=== PATIENT | female | born 1985 | race Hispanic/Latino ===

== ENCOUNTER 2019-12-13 00:36 | Day surgery (SDC) | payer OTHER ==
[2019-12-13 01:28] VITALS: BMI 27.6
[2019-12-13] MEDS ORDERED: hydrALAZINE 20 MG/ML VIAL SLOW IVP PRN (02:10)
--- NOTE | 2019-12-13 02:13 | PDOC.LDHP ---
Labor and Delivery H&P HPI: Patient of Dr Clay Time: Location: Triage A 34 yo at 34 weeks 0 days with last child by CS 14 years ago, here for incresaed urinary frequency and possible CTX. Good FM, no LOF, no fevers. Review of Systems: complete ROS complected and as per HPI Current gestational age (weeks): 34 (0) Dating criteria: last menstrual period Grav: 2 Para: 1 OB History Details: CS for previa Current complications: none Abnormal US findings: No Current medications: pre- vitamins Previous surgical history: other (CS HX X1) Allergies/Adverse Reactions: Allergies Allergy/AdvReac Type Severity Reaction Status Date / Time morphine Allergy Verified 12/13/19 01:16 Sulfa (Sulfonamide Allergy Verified 12/13/19 01:16 Antibiotics) Social history: none - Physical Exam Vital signs reviewed and normal: yes (first BP was 137/85 then 127/78) General: NAD Heart: RRR Lungs: CTAB Abdomen: gravid Extremeties: no edema FHT: category 1 [place] contractions every: CTXs noted every 3-5 minutes - Vaginal Exam cm dilated: 1 (by me with RN in room) Effacement: 25% Station: -3 - Assessment 34 weeks threatened PTL - Plan Plan: observation in L&D (I have ordered IVF hydration, clean cath UA. IF CTX perssist, consider BMZ for FLM and will admit at that time. We will OBS for now. OB sono for EFW.)
[2019-12-13] MEDS ORDERED: Lactated Ringer's 1,000 ML IV SCH (02:15)
[2019-12-13] MEDS ORDERED: Butorphanol Tartrate 1 MG/ML VIAL SLOW IVP SCH (02:30)
[2019-12-13 02:36] LABS: Bilirubin Negative (Negative); Blood, Urine Negative (Negative); Clarity Clear (Clear); Glucose, Urine (Dipstick) Normal (Negative); Leukocyte Negative Leu/uL (Negative); Nitrite Negative (Negative); Protein, Urine (Dipstick) Negative (Neg-Trace); RBC/HPF 0-3 HPF (0-3); Squamous Epithelial 0-3 HPF (0-3); Urobilinogen Normal mg/dL (Less than 2); WBC/HPF 0-3 HPF (0-3)
[2019-12-13 02:37] LABS: Bacteria/HPF None Seen HPF (None Seen); Urine Culture Reflex No No
--- NOTE | 2019-12-13 03:12 | PDOC.EVN ---
Event Note - Event Note Event Note: UA clean. Asked to come to bedside by sono business office technician to eval placenta. Unclear possible retroplacental fluid collection. Clinically I do not suspect abruption and fundus is soft and NT. No VB. No FHT decels. Continue to follow. Baby is vertex on sono.
--- NOTE | 2019-12-13 06:20 | PDOC.EVN ---
Event Note - Event Note Event Note: Strip reviewed: Baby reactive. NO decels. [place] with spaced out CTX but still present. I have asked her RN to recheck CX as it has been about 5 hrs or so.
--- NOTE | 2019-12-13 06:39 | PDOC.EVN ---
Event Note - Event Note Event Note: I have seen the patient at bedside and reviewed POC with her. OK for outpatient follow up with Dr bearden within 48 hrs. L&D instructions given to her by me. FHTS reviewed with her: reactive
--- NOTE | 2019-12-13 08:35 | ULT ---
PRELIMINARY REPORT/[facility]/EMERGENCY AFTER HOURS PROCEDURE EXAM: US Obstetrical, Complete >14 weeks. CLINICAL HISTORY: HX: CONTRACTIONS AT 34 WKS. SEE NOTES ON LAST IMAGE. THANKS TECHNIQUE: Transabdominal imaging of the maternal pelvis and a > 14 week gestation with image documen tation. COMPARISON: None provided. FINDINGS: FETUS: There is a single living intrauterine gestation, estimated gestational age 35 weeks 1 day POSITION: position is cephalic. HEART RATE: The heart rate is 150 beats per minute. BIOMETRICS: Based on composite biometry, the estimated gestational age by ultrasound is 35 weeks 1 day nico esponding to a due date of 01/16/2020. The estimated weight is 2389 g. ANATOMIC SURVEY: The visualized anatomy is unremarkable. PLACENTA: The placenta is located anterior. There is no evidence for placenta previa. A 4.0 x 2.4 cm retropla cental fluid collection probably represents hemorrhage. AMNIOTIC FLUID: Within normal limits. The RICCI is 22.2 cm CERVIX: Closed. Unremarkable as visualized. IMPRESSION: Single viable intrauterine . 4 cm retroplacental hemorrhage. ELECTRONICALLY SIGNED BY: Karl Schofield MD Dec 13, 2019 3:32:49 AM CDT This report is intended for review by the ordering physician only, in accordance of law. If you recei ve this report in error, please call [facility] at [phone]. FINAL REPORT OB ULTRASOUND: I agree with the preliminary report given by Dr. Schofield of [facility]. Biometry: BPD 9.07 cm, 36 weeks 5 days HC 32.31 cm, 36 weeks 4 days AC 30.18 cm, 34 weeks 1 day FL 6.35 cm, 32 weeks 6 days POS: ANAND
== END 2019-12-13 07:20 | disposition home or self-care (01) ==
LOC: L&D/OP 00:36
PROVIDERS: ATTEND Obstetrics & Gynecology
DX: O47.03 False labor before 37 completed weeks of gestation, third trimester (principal); O09.523 Supervision of elderly multigravida, third trimester; Z3A.34 34 weeks gestation of pregnancy; Z88.2 Allergy status to sulfonamides; Z88.5 Allergy status to narcotic agent
CPT/HCPCS: 76805; 81001; 96360; 96361; 96375; 99283; J0595

== ENCOUNTER 2020-01-02 15:31 | Inpatient (IN) | payer OTHER ==
[2020-01-02 15:54] VITALS: BMI 27.9
--- NOTE | 2020-01-02 16:06 | PDOC.LDHP ---
Labor and Delivery H&P Chief complaint: contractions, loss of fluid HPI: Pt is a 34 yo at 36.6 wks who presents for suspected SROM at 1507. She also endorsed contractions, irregular initially this am and progressed to every 4-5 mins. She denies vaginal bleeding. She does not want a TOLAC and has discussed this with Dr. Clay. Hx of placenta previa in first resulting in a 33 wk . She states U/S with this did not reveal previa. PCP: Danna Grav: 2 Para: 1 OB History Details: Hx of a placenta previa and delivery at 33 wks x 1 Current complications: gestational diabetes (States she is controlled with diet, last a1c 5.3) Current medications: pre-tiesha vitamins Previous surgical history: low tranverse CS Allergies/Adverse Reactions: Allergies Allergy/AdvReac Type Severity Reaction Status Date / Time morphine Allergy Verified 12/13/19 01:16 Sulfa (Sulfonamide Allergy Verified 12/13/19 01:16 Antibiotics) Social history: none - Physical Exam Vital signs reviewed and normal: yes General: breathing through contractions Heart: RRR Lungs: CTAB Abdomen: NTTP Extremeties: no edema FHT: category 2, early decelerations [place] contractions every: 4mins - Vaginal Exam cm dilated: 3 Station: 0 - Assessment L&D Assessment: premature rupture of membranes - Plan Plan: to OR for section -: Pt is a 34 yo at 36.6 wks who presents for rupture of membranes: # IUP w/ ROM in setting of prior - did not perform sterile speculum exam, amnisure as pt had grossly ruptured - admit pt to L&D for repeat - Case discussed with Dr. Clay - ancef ordered - monitor FHT's - cervical check # Hx of Delivery 2/2 Placenta Previa in first # A1GDM Well controlled - last a1c 5.3 per pt - monitor # Uterine Fibroids OBGYN: Dr. Clay Case discussed with Dr. Mcdermott.
[2020-01-02] MEDS ORDERED: Docusate 100 MG CAP PO PRN (16:18)
[2020-01-02] MEDS ORDERED: Ondansetron PF 4 MG/2 ML Vial IVP PRN ×3 (16:18→19:41)
[2020-01-02] MEDS ORDERED: Promethazine HCl 25 MG/ML VIAL IM PRN ×2 (16:18→19:04)
[2020-01-02] MEDS ORDERED: hydrALAZINE 20 MG/ML VIAL SLOW IVP PRN ×2 (16:18→19:41)
[2020-01-02] MEDS: Lactated Ringer's 1,000 ML IV SCH ×2 (16:22→17:13)
[2020-01-02] MEDS ORDERED: Bicitra 30 ML UDCUP PO SCH (16:30)
[2020-01-02] MEDS ORDERED: CEFAZOLIN 2 GM in Premix Bag 1 BAG IVPB SCH (16:30)
[2020-01-02 16:46] LABS: Hemoglobin 13.1 g/dL (12.0-16.0); Mean Corpuscular HGB CONC 35.8 g/dL (32.0-36.0); Mean Corpuscular Hemoglobin 32.5 pg (27.0-31.0); Mean Platelet Volume 8.1 fL (7.4-10.4); Platelet Count 187 thou/uL (130-400); RBC Distribution Width 11.6 % (11.5-14.5); Red Blood Cell (RBC) Count 4.01 mill/uL (4.20-5.40)
[2020-01-02] MEDS ORDERED: PHENYLEPHRINE-NS 100 MCG/ML 10 ML SYRINGE ONE (17:02)
[2020-01-02] MEDS ORDERED: Oxytocin 10 UNITS/ML VIAL ONE ×2 (17:02→18:13)
[2020-01-02] MEDS ORDERED: MORPHINE 5 MG/10 ML PF VIAL ONE (17:02)
[2020-01-02 17:32] LABS: HBSAg Index 0.18 S/CO (0-0.99); Hep B Surf Ag Non-Reactive S/CO (NonReactive); Syphilis Antibody Nonreactive (Nonreactive); Syphilis Antibody Index 0.05 S/CO (<1.00 Non-Reactive)
[2020-01-02] MEDS ORDERED: Meperidine HCl/PF 25 MG/ML VIAL ONE (18:30)
[2020-01-02] MEDS ORDERED: Midazolam HCl 2 mg/2 ml Vial ONE (18:47)
[2020-01-02] MEDS ORDERED: Meperidine HCl/PF 25 MG/ML VIAL SLOW IVP PRN (19:04)
[2020-01-02] MEDS ORDERED: Ondansetron HCl/PF 4 MG/2 ML Vial IVP PRN (19:04)
[2020-01-02] MEDS ORDERED: Naloxone HCl 0.4 mg/ml Vial IV PRN (19:04)
[2020-01-02] MEDS ORDERED: diphenhydrAMINE 50 MG/ML VIAL IVP PRN (19:04)
[2020-01-02] MEDS ORDERED: Promethazine HCl 25 MG SUPP PR PRN (19:04)
[2020-01-02] MEDS ORDERED: HYDROmorphone 2 MG/ML VIAL SLOW IVP PRN (19:04)
[2020-01-02] MEDS ORDERED: Naloxone HCl 0.4 mg/ml Vial IVP PRN ×2 (19:04)
[2020-01-02] MEDS ORDERED: Communication Order-Pharmacy FS SCH (19:15)
[2020-01-02] MEDS ORDERED: Ketorolac Tromethamine 30 MG/ML VIAL IVP SCH (19:15)
[2020-01-02] MEDS ORDERED: Ketorolac Tromethamine 30 MG/ML VIAL ONE (19:32)
[2020-01-02] MEDS ORDERED: Ondansetron PF 4 MG/2 ML Vial ONE (19:32)
[2020-01-02] MEDS ORDERED: diphenhydrAMINE 25 MG CAP PO PRN (19:41)
[2020-01-02] MEDS ORDERED: Misoprostol 200 MCG TAB PR PRN (19:41)
[2020-01-02] MEDS ORDERED: Lanolin Ointment 7 GM TUBE TOP PRN (19:41)
[2020-01-02] MEDS ORDERED: Bisacodyl 10 MG SUPP PR PRN (19:41)
[2020-01-02] MEDS ORDERED: Adacel (T-DAP) 0.5 ML SYRINGE IM ONE (19:41)
[2020-01-02] MEDS: Ketorolac Tromethamine 30 MG/ML VIAL IVP PRN (19:42)
[2020-01-02] MEDS ORDERED: NS / Oxytocin 40 units/1000ml 1,000 ML IV SCH (19:45)
[2020-01-03] MEDS: Ferrous Sulfate 325 MG TAB PO SCH ×2 (03:13→10:23)
[2020-01-03] MEDS: Docusate Calcium (SURFAK) 240 MG CAP PO SCH ×2 (03:13→08:49)
[2020-01-03] MEDS: CEFAZOLIN 2 GM in Premix Bag 1 BAG IVPB SCH ×2 (03:29→08:39)
[2020-01-03 06:00] LABS: Hemoglobin 10.2 g/dL (12.0-16.0); Mean Corpuscular HGB CONC 34.5 g/dL (32.0-36.0); Mean Corpuscular Hemoglobin 31.3 pg (27.0-31.0); Mean Corpuscular Volume 90.7 fL (78.0-98.0); Mean Platelet Volume 7.8 fL (7.4-10.4); Platelet Count 145 thou/uL (130-400); RBC Distribution Width 11.7 % (11.5-14.5); Red Blood Cell (RBC) Count 3.28 mill/uL (4.20-5.40); White Blood Cell (WBC) Count 14.1 thou/uL (4.8-10.8)
[2020-01-03] MEDS: Ketorolac Tromethamine 30 MG/ML VIAL IVP PRN ×3 (06:00→21:01)
[2020-01-03] MEDS: Lactated Ringer's 1,000 ML IV SCH ×3 (06:02→10:24)
[2020-01-03] MEDS ORDERED: Zolpidem Tartrate 5 MG TAB PO PRN (07:15)
[2020-01-03] MEDS ORDERED: Meperidine HCl/PF 25 MG/ML VIAL IM PRN (07:15)
[2020-01-03] MEDS ORDERED: HYDROcodone/Acetaminophen 5/325 mg Tablet PO PRN ×2 (07:15)
[2020-01-03] MEDS: Prenatal Vitamin 1 TAB PO SCH (08:40)
[2020-01-03] MEDS: Simethicone Chewable 80 MG TAB PO PRN (21:11)
[2020-01-04] MEDS: Docusate Calcium (SURFAK) 240 MG CAP PO SCH ×3 (01:59→20:25)
[2020-01-04] MEDS: Ibuprofen 800 MG TAB PO SCH ×4 (01:59→20:25)
[2020-01-04] MEDS: Ferrous Sulfate 325 MG TAB PO SCH ×3 (01:59→20:24)
[2020-01-04] MEDS: Lactated Ringer's 1,000 ML IV SCH ×4 (08:24→22:44)
[2020-01-04] MEDS: Simethicone Chewable 80 MG TAB PO PRN (09:18)
[2020-01-04] MEDS: Prenatal Vitamin 1 TAB PO SCH (10:42)
[2020-01-04] MEDS: Acetaminophen 325 MG TAB PO PRN ×2 (10:43→18:24)
[2020-01-05] MEDS: Ibuprofen 800 MG TAB PO SCH (06:08)
[2020-01-05] MEDS: Ferrous Sulfate 325 MG TAB PO SCH (07:38)
[2020-01-05 08:17] VITALS: BP 119/84; TEMP 97.7
[2020-01-05] MEDS: Prenatal Vitamin 1 TAB PO SCH (08:51)
[2020-01-05] MEDS: Docusate Calcium (SURFAK) 240 MG CAP PO SCH (08:51)
[2020-01-05] MEDS: Acetaminophen 325 MG TAB PO PRN (10:20)
[2020-01-05] MEDS: Lactated Ringer's 1,000 ML IV SCH (11:23)
== END 2020-01-05 11:55 | disposition home or self-care (01) | DRG 786 ==
LOC: L&D/OP 15:31 → L&D 16:36 → 3SW 22:13
PROVIDERS: ADMIT Obstetrics & Gynecology; ATTEND Obstetrics & Gynecology
PROC: 10D00Z1 Extraction of Products of Conception, Low, Open Approach (ICD-10-PCS; principal; 2020-01-02)
DX: O24.420 Gestational diabetes mellitus in childbirth, diet controlled (principal); O60.13X0 Preterm labor second trimester with preterm delivery third trimester, not applicable or unspecified; O42.013 Preterm premature rupture of membranes, onset of labor within 24 hours of rupture, third trimester; O34.211 Maternal care for low transverse scar from previous cesarean delivery; O34.13 Maternal care for benign tumor of corpus uteri, third trimester; Z3A.36 36 weeks gestation of pregnancy; Z37.0 Single live birth
CPT/HCPCS: 36415; 36416; 51702; 85027; 86780; 86850; 86900; 86901; 87340; 88305; 99285; J0690; J1885; J2175; J2250; J2274; J2405; J2590